=== PATIENT | female | born 1935 | race Caucasian/White ===

== ENCOUNTER 2016-11-23 14:00 | Inpatient (IN) | payer OTHER ==
[~2016-11-23] VITALS: Ht 170.2 cm; Wt 55.1 kg
[2016-11-23 14:00] VITALS: BP 131/61
[2016-11-23] MEDS ORDERED: WARFARIN SOD 2.5 MG TAB PO ONE (17:00)
--- NOTE | 2016-11-23 19:30 | HPEPDOC ---
Assembler Equipment Note DATE OF ADMISSION: Nov 23, 2016 at 14:00 Status Inpatient HISTORY OF PRESENT ILLNESS: Patient is an 81-year-old white female who presented to [facility] on 11/09/16. 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 Her initial hospitalization was complicated by 2 episodes of ventricular tachycardia related to her atrial fibrillation. Both of these events caused the patient to have a cardiopulmonary arrest and to be resuscitated. Resuscitated session lasted about 5 minutes and both events. EKG strip showed polymorphic ventricular tachycardia. Subsequent echo showed ejection fraction of 48% with global hypokinesis. On 11/19/16 patient had an AICD placed. She has been able to participate in physical occupational and speech therapy since then. She continues to have some right- sided weakness but more impressive is the fluid aphasia that tends to be more expressive than receptive or dysarthria and dysphasia have improved the patient still can certainly need supervision for meals. She has also been on Coumadin and today's INR is 3.3. PAST MEDICAL HISTORY: 1. Atrial fibrillation 2. Valvular heart disease 3. Chronic kidney disease stage III PAST SURGICAL HISTORY: 1. Status post aortic valve replacement 2. Status post mitral valve replacement 3. Status post right hip repair 4. Status post AICD placement on 11/19/16 ALLERGIES: No known drug allergy. MEDICATIONS: Acetaminophen 650 mg every 4 hours when necessary pain. Amlodipine 10 mg by mouth every day. Aspirin chewable 81 mg tablet 1 by mouth every daily. Atorvastatin 40 mg by mouth every at bedtime. Colace 100 mg by mouth daily. Hydrochlorothiazide 25 mg by mouth daily. Levothyroxine 50 g by mouth daily. Lisinopril 5 mg by mouth every daily. Metoprolol 25 mg by mouth twice a day. Dulera 200/5 Two puffs bid changed to Symbicort 160/4.5 2 puffs twice a day. Multivitamin 1 tablet by mouth daily. MiraLAX 17 g by mouth daily. Coumadin 2.5 mg by mouth every at bedtime being held tonight due to high INR. FAMILY HISTORY: Family history not obtainable from the patient with aphasia. SOCIAL HISTORY: Patient previously living independently in her own home further history limited by communication. Patient does have a daughter who is already being contact with the nursing staff. REVIEW OF SYSTEMS: Patient unable to give detailed review of system due to communication. At this time expresses that she feels good except for some facial droop and trouble with words. PHYSICAL EXAMINATION: VITAL SIGNS: Temp. 98.0F Pulse 81 BP 131/61 [id number]% on O2 2 L/M by Nasal Cannula GENERAL: Thin elderly white female saying up in her room. She is alert and oriented to self being in [place] and rehabilitation but not the specific facility. She is aware that is October but thinks it is the third of 2014. Patient does have extensive blue black ecchymoses on both upper extremities and her chin. And a fresh healing left chest incision from the AICD. She appears to be in good spirits and minimal musculoskeletal distress. She is pleasant and tries to follow directions is limited by receptive aphasia occasionally performing other than the task asked her answering the question wrongly sometimes do word substitution sometimes due to a little perseveration. Eyes: Extraocular ocular motions are intact and pupils are equal round reactive to light and accommodations. Ears, Nose & Throat: Face is essentially symmetrical at this time with no appreciable drooping and good movement of all facial muscles. Nose is straight and patent oropharynx does show some coating on the tongue but no signs of inflammation. Neck is supple and no goiter is palpable . CARDIOVASCULAR: Patient is showing a regular rate and rhythm with systolic and diastolic clicks. Pulses are 2+ over the radial arteries bilaterally and there is good perfusion of the fingers. PULMONARY: Lungs are clear in all rodríguez saw auscultation. AICD incision site is without drainage or inflammation. GASTROINTESTINAL: Bowel sounds are present in all quadrants with no palpable tenderness rebound present . MUSCULOSKELETAL: Motor exam shows 5 minus to 5 out of 5 strength in bilateral upper and lower extremities with functional range of motion and 1-2+ pitting edema in the distal leg. NEUROLOGICAL: As noted above. SKIN: As noted above . PSYCHIATRIC: As noted above. FUNCTIONAL STATUS: Premorbid: Independent on ADLs and mobility and communication living alone in her own home. On Admission: Requiring supervision for meals, min assist for grooming mod. Assistance for bathing, min assist for dressing upper body moderate assist for lower body and toileting right independent bowel and bladder total to max assist in transfers toilet locomotion min assist and expressive communication moderate assist and receptive communication social interaction and problem solving memory. ASSESSMENT AND PLAN: 1. Rehabilitation patient of left middle cerebral artery CVA. Patient admitted to the rehabilitation unit for acute intensive neuro rehabilitation including physical occupational therapy 1.5 hours or more per day 5 days a week and one half hour of speech therapy 5 days per week to facilitate transition from current status to modified independence to independent in ADLs and mobility and self-care. Patient is motivated and is medically stabilized appears able to participate and benefit from this course of rehabilitation. Initial estimated length of stay 10-14 days. 2. Atrial fibrillation. Will continue course of treatment with Coumadin and ask hospitalist to evaluate and follow. At this time INR target range will be 2.5- 3.5. Due to limited lab reports and INR of 3.[address] [facility] Coumadin order that had been 2.5 mg every 1700 hrs. Patient is currently responding to her cardiac medication and is out of atrial fibrillation at this time 3. Ventricular tachycardia with cardiac arrest secondary to atrial fibrillation. This appears to have stabilized with current regimen and AICD placement. Will continue to monitor. 4. Valvular heart disease. Aortic and mitral valve appeared to be functioning well. 5. Chronic kidney disease stage III. We'll assess current renal function with comprehensive metabolic panel as well as check urinalysis and urine culture. POST ADMISSION PHYSICIAN EVALUATION: Patient appears able to and desiring to participate in an benefit from neuro rehabilitation including physical occupational and speech therapies along with rehabilitation nursing and care coordination. In light of her multiple recent medical problems with cardiac arrhythmia I believe patient is better serve and her rehabilitation evaluation and training and is more acute environment possible modification of intensity per her ability to tolerate the therapy. PROGNOSIS: Fair to good ESTIMATED LENGTH OF STAY: 10-14 days. Chart review, history and physical examination, care plan and documentation and required greater than to 90 minutes. Vital Signs Vital Sign - Last 24 Hours 11/23/16 14:00 Temp 98.0 Pulse 81 Resp 19 B/P 131/61 Pulse Ox 100 O2 Delivery Nasal Cannula O2 Flow Rate 2.0 Allergies Coded Allergies: No Known Allergies (Unverified , 11/23/16) HARJINDER DUNN MD Nov 23, 2016 19:29
[2016-11-23 20:00] VITALS: BP 130/60
[2016-11-23] MEDS: SYMBICORT 160/4.5MCG INHALER 6GM INH SCH (20:20)
[2016-11-23] MEDS: ATORVASTATIN 20 MG TAB PO SCH (20:59)
[2016-11-23] MEDS: METOPROLOL TART 25 MG TABLET PO SCH (20:59)
[2016-11-23] MEDS: ACETAMINOPHEN TAB 650MG DOSE (2X325MG) PO PRN (22:30)
[2016-11-24] MEDS: LEVOTHYROXINE 0.05 MG TAB (50 MCG) PO SCH (05:55)
[2016-11-24 06:00] VITALS: BP 139/65
[2016-11-24 07:18] LABS: INR 2.43
[2016-11-24 07:22] LABS: BASO % 0.4 % (0.0-1.0); EOS # 0.2 K/mm3 (0.0-0.50); LARGE UNSTAINED CELL # 0.1 K/mm3 (0.0-0.4); LYMPH # 0.3 K/mm3 (1.5-4.5); LYMPH % 4.9 % (24.0-44.0); MEAN CORPUSCULAR HEMOGLOBIN 28.5 pg (27.0-33.0); MEAN CORPUSCULAR HGB CONC 32.7 g/dl (32.0-36.5); MEAN CORPUSCULAR VOLUME 87.2 fl (80.0-96.0); MONO # 0.3 K/mm3 (0.0-0.8); MONO % 3.9 % (0.0-5.0); NEUTROPHILS # 5.9 K/mm3 (1.8-7.7); NEUTROPHILS % 86.8 % (36.0-66.0); PLATELET COUNT, AUTOMATED 253 k/mm3 (150-450); RED CELL DISTRIBUTION WIDTH 13.9 % (11.5-14.5); WHITE BLOOD COUNT 6.8 K/mm3 (4.0-10.0)
[2016-11-24 07:29] LABS: ALBUMIN 3.4 GM/DL (3.2-5.2); ALBUMIN/GLOBULIN RATIO 1.06 (1.00-1.93); BILIRUBIN,TOTAL 0.6 MG/DL (0.2-1.0); CALCIUM LEVEL 8.8 MG/DL (8.8-10.2); CREATININE FOR GFR 1.21 MG/DL (0.55-1.02); GLOMERULAR FILTRATION RATE 45.5 (>32); POTASSIUM SERUM 4.4 MEQ/L (3.5-5.1); TOTAL PROTEIN 6.6 GM/DL (6.4-8.2)
[2016-11-24] MEDS: SYMBICORT 160/4.5MCG INHALER 6GM INH SCH ×2 (07:40→21:06)
[2016-11-24] MEDS: busPIRone 5 MG TAB PO SCH ×2 (08:48→20:59)
[2016-11-24] MEDS: hydroCHLOROthiazide 25 MG TAB PO SCH (08:49)
[2016-11-24] MEDS: amLODIPine 10 MG TAB PO SCH (08:49)
[2016-11-24] MEDS: MIRALAX *UNIT DOSE* 17GM PACKET PO SCH (08:49)
[2016-11-24] MEDS: MULTIVITAMINS/MINERALS THERAP 1 TAB PO SCH (08:49)
[2016-11-24] MEDS: DOCUSATE SODIUM 100 MG CAP PO SCH (08:49)
[2016-11-24] MEDS: METOPROLOL TART 25 MG TABLET PO SCH ×2 (08:49→20:59)
[2016-11-24] MEDS: LISINOPRIL 5 MG TAB PO SCH (08:49)
[2016-11-24] MEDS: ASPIRIN 81 MG CHEW TABLET PO SCH (08:49)
--- NOTE | 2016-11-24 12:51 | CR.PDOC ---
[facility] Consultation Consultation DATE OF Consultation : 11/25/15 ATTENDING: Dr. Camp PCP Dr Aldana HPI: 81yoF with a past medical history significant for VHD and Afib, CKD, pacemaker, who presented to [facility]16 with slurred speech, and found with MCA ischemic CVA. She was initially treated with heparin gtt and Coumadin (INR on admission 1.37). Initial CT Head neg but repeat showed moderate size acute MCA territory CVA. Hospital course complicted by Vfib arrest 11/09. 11/10 runs of NSVT and subsequently pulseless arrest with 5 min of CPR. She was sunsequently transferred to [facility]. Denies any fevers, chills, weakness, fatigue, ANDINO, CP, SOB, cough, palpitations, abdominal pain, N/V/D or changes in bowel or bladder habits. She was transferred to [facility] PMR 11/23/16 for acute rehabilitation, thus the hospitalist team was consulted to assist with medical management. PMHx: Atrial fib VHD CKD 3 Baseline 1.7-1.8 Left MCA Ischemic CVA 11/09/16 (Complicated by Cardiac arrest/VT). AICD placed . Carotid U/S [facility] 80-90% prox Rt ICA- Outpt mgmt recommended/not felt to be a surgical candidate. TTE [facility] EF 40-45%, diffuse hypokinesis. Stress Study 11/17 [facility] Small fixed defect. HLD hypothyroid COPD PSHX: [facility] Mechanical Aortic and Mitral Valve Replacement 1989 Pacemaker Rt hip pinning s/p fracture C section AICD 11/19/16 SOCHX: Resides in: [place], lives with Marital Status: single Kids: 2 Tobacco use: denies ETOH: denies Illicit Drugs: Denies Advanced directives: Full code ROS: As noted in HPI, otherwise 11pt ROS of systems reviewed and unremarkable. PE: GEN: 81yoF, appears stated age. Well-nourished, well developed. No acute distress. Alert and oriented x 3. Pleasant, interactive. HEENT: Normocephalic, atraumatic. Pupils are equal, round, and reactive to light. Extraocular movements are intact. No nystagmus appreciated. Sclera are nonicteric. Conjunctiva without injection. Nose midline. Nasal turbinates without bogginess. EACs both patent BL. TMs both visualized and stiles with good cone of light, no bulging or erythema. No facial asymmetry. Moist mucous membranes. Dentition fair. Pharynx pink and moist, no cobblestoning. Neck supple , trachea midline. No lymphadenopathy or thyromegaly appreciated. CHEST: Regular rate and rhythm, +S1, +S2. [place] prosthetic sounds. healed sternotomy scar and AICD implant scar left chest. LUNGS: Clear to auscultation bilaterally. No wheezes, rales, or rhonchi. Breathing appears symmetric and easy. ABD: Round, soft, non-tender, non-distended. +Bowel sounds throughout. No rebound or guarding. No costovertebral angle tenderness. EXT: Pulses 2+ bilaterally dorsalis pedis and radial. trace lower extremity edema appreciated. SKIN: [place], dry, warm. Capillary refill <2sec. No rashes. NEURO: Alert and oriented x 3. Pt with expressive aphasia. EKG: pending UC pending. A&P: 81yoF with a past medical history significant for VHD and Afib, CKD, pacemaker, who presented to [facility] 11/[facility]/16 with slurred speech, and found with MCA ischemic CVA. The patient is admitted to PMR to Dr. Camp's service. 1. S/P Ischemic CVA. Rehab services as per PMR. PT/OT/ST. bowel care ASA 81mg daily/Statin. 2. Mechanical AVR/MVR. Goal INR 2.5-3.5. Coumdain daily dose previously 2.5mg daily as per records. Will give 4 mg Coumadin today, monitor INR daily. If INR remains subtherapeutic tomorrow, consider coverage with Lovenox. (previous maintenance dose 2.5mg daily). 3. Afib. Lopressor rate control. HR 80-90s. Coumadin as above. Update baseline EKG. 4. H/O VT/AICD. Lopressor. Outpt f/u with Cardiology for management of AICD. 5. Carotid vascular disease. Outpt f/u. 6. CKD3. Baseline 1.7-1.8. 1.21 currently. AM labs. 7. hypothyroid. Continue supplement. 8. HLD. Statin 9. COPD. Symbicort. 10 Anemia. Add Fe studies, B12 and folate with labs. 11. Anxiety. Buspar. DVT prophylaxis. On Coumadin as above. I have both independently examined this patient as well as reviewed the consult. I have discussed in detail with Mary Ann the findings and plan of treatment as documented in Mary Ann'ss note. I will continue to follow the patient and offer further guidance to the patients care as necessary during this hospital stay. Ronak Bowen MD Vital Signs/I&O Vital Signs Date Time Temp Pulse Resp B/P Pulse Ox O2 Delivery O2 Flow Rate FiO2 11/24/16 09:00 Nasal Cannula 1.0 11/24/16 08:49 92 139/65 11/24/16 06:00 98.4 20 98 I&O- Last 24 Hours up to 6 AM 11/24/16 06:00 Intake Total 480 ml Balance 480 ml Laboratory Data Labs 24H Laboratory Tests 2 11/24/16 06:44: Blood Urea Nitrogen 26H, Creatinine 1.21H, Sodium Level 142, Potassium Level 4.4 , Chloride Level 104, Carbon Dioxide Level 28, Calcium Level 8.8, Aspartate Amino Transf (AST/SGOT) 41H, Alanine Aminotransferase (ALT/SGPT) 12, Alkaline Phosphatase 155H, Total Bilirubin 0.6, Total Protein 6.6, Albumin 3.4, Albumin/ Globulin Ratio 1.06, Anion Gap 10, White Blood Count 6.8, Red Blood Count 3.27L , Hemoglobin 9.3L, Hematocrit 28.5L, Mean Corpuscular Volume 87.2, Mean Corpuscular Hemoglobin 28.5, Mean Corpuscular Hemoglobin Concent 32.7, Red Cell Distribution Width 13.9, Platelet Count 253, Neutrophils (%) (Auto) 86.8H, Lymphocytes (%) (Auto) 4.9L, Monocytes (%) (Auto) 3.9, Eosinophils (%) (Auto) 3.0, Basophils (%) (Auto) 0.4, Neutrophils # (Auto) 5.9, Lymphocytes # (Auto) 0.3L, Monocytes # (Auto) 0.3, Eosinophils # (Auto) 0.2, Basophils # (Auto) 0.0, Glomerular Filtration Rate 45.5, Large Unclassified Cells # 0.1, Large Unclassified Cells % 1.0, Prothromb Time International Ratio 2.43, Prothrombin Time 26.5H 11/24/16 09:26: Urine Amorphous Sediment , Urine Appearance CLEAR, Urine Color YELLOW, Urine pH 5.0, Urine Specific [place] 1.011, Urine Protein NEGATIVE, Urine Glucose (UA) NEGATIVE, Urine Ketones NEGATIVE, Urine Urobilinogen 0.2, Urine Bilirubin NEGATIVE, Urine Leukocyte Esterase 2+H, Urine Bacteria (Auto) 1+H, Urine Blood NEGATIVE, Urine Calcium Carbonate Cryst(Auto) , Urine Calcium Oxalate Cryst ( Auto) , Urine Calcium Phosphate [place] (Auto) , Urine Cellular Casts , Urine Cystine Crystals , Urine Granular Casts (Auto) , Urine Hyaline Casts (Auto) 1, Urine Leucine Crystals , Urine Mucus (Auto) , Urine Nitrite NEGATIVE, Urine Oval Fat Bodies (Auto) , Urine RBC (Auto) 6H, Urine Renal Epithelial Cells , Urine Sperm (Auto) , Urine Squamous Epithelial Cells 1, Urine Transitional Epithelial Cells , Urine Trichomonas (Auto) , Urine Triple Phosphate Cryst (Auto ) , Urine Tyrosine Crystals , Urine Uric Acid Crystals (Auto) , Urine WBC (Auto ) 72H, Urine Waxy Casts (Auto) , Urine Yeast-Like Cells (Auto) CBC/BMP Laboratory Tests 11/24/16 06:44 Calcium Level 8.8, Aspartate Amino Transf (AST/SGOT) 41 H, Alanine Aminotransferase (ALT/SGPT) 12, Alkaline Phosphatase 155 H, Total Bilirubin 0.6 , Total Protein 6.6, Albumin 3.4, Red Blood Count 3.27 L, Mean Corpuscular Volume 87.2, Mean Corpuscular Hemoglobin 28.5, Mean Corpuscular Hemoglobin Concent 32.7, Red Cell Distribution Width 13.9, Neutrophils (%) (Auto) 86.8 H, Lymphocytes (%) (Auto) 4.9 L, Monocytes (%) (Auto) 3.9, Eosinophils (%) (Auto) 3.0, Basophils (%) (Auto) 0.4, Neutrophils # (Auto) 5.9, Lymphocytes # (Auto) 0.3 L, Monocytes # (Auto) 0.3, Eosinophils # (Auto) 0.2, Basophils # (Auto) 0.0 Microbiology Microbiology 11/24/16 Urine Culture, Received Pending Allergies Coded Allergies: No Known Allergies (Unverified , 11/23/16) Mary Ann Arteaga Nov 24, 2016 12:51 RONAK BOWEN MD Nov 25, 2016 06:58
[2016-11-24 14:00] VITALS: BP 145/64
--- NOTE | 2016-11-24 15:30 | IPNPDOC ---
Strategy Lead Progress Note DATE OF SERVICE: DATE OF ADMISSION: Nov 23, 2016 at 14:00 INPATIENT REHABILITATION ADMISSION DAY: #[2] HISTORY OF PRESENT ILLNESS: Patient is an 81-year-old white female who presented to [facility] on 11/09/16. 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 Her initial hospitalization was complicated by 2 episodes of ventricular tachycardia related to her atrial fibrillation. Both of these events caused the patient to have a cardiopulmonary arrest and to be resuscitated. Resuscitated session lasted about 5 minutes and both events. EKG strip showed polymorphic ventricular tachycardia. Subsequent echo showed ejection fraction of 48% with global hypokinesis. On 11/19/16 patient had an AICD placed. She has been able to participate in physical occupational and speech therapy since then. She continues to have some right- sided weakness but more impressive is the fluid aphasia that tends to be more expressive than receptive or dysarthria and dysphasia have improved the patient still can certainly need supervision for meals. She has also been on Coumadin and today's INR is 3.3. PAST MEDICAL HISTORY: 1. Atrial fibrillation 2. Valvular heart disease 3. Chronic kidney disease stage III PAST SURGICAL HISTORY: 1. Status post aortic valve replacement 2. Status post mitral valve replacement 3. Status post right hip repair 4. Status post AICD placement on 11/19/16 ALLERGIES: No known drug allergy. MEDICATIONS ON ADMISSION: Reviewed, see below. SUBJECTIVE: Thin elderly white female with a aphasia and right hemiparesis admitted yesterday trial of neuro rehabilitation. Patient notes that she is always cold as she is wrapped up blanket right now. room temperature has been raised. Patient denies pain or other problems. Reports initial evaluations mean with the therapists and hospitalist went well. No other complaints at this time. VITAL SIGNS: See below. PHYSICAL EXAMINATION: GENERAL: Elderly white female with fluent aphasia who is pleasant and cooperative and oriented to person and partially to time. HEENT: Facial symmetry is intact. Speech is slightly improved. Some decrease in dysarthria noted. CARDIOVASCULAR: Regular rate and rhythm with valve clicks at the beginning and end of systole and 1-2/6 holosystolic murmur. 2 out of 4 bilateral radial pulses. LUNGS: All rodríguez clear to auscultation. ABDOMEN: Bowel sounds present in all quadrants. NEUROLOGICAL: As noted above with mild right hemiparesis, most notably a Wernicke's aphasia. SKIN: Ecchymoses are maturing and improving LABORATORY DATA: Reviewed, see below. ASSESSMENT AND PLAN: 1. [Rehabilitation of left CVA with right hemiparesis and fluid aphasia: Continue with basic plan for trial of neuro rehabilitation]. 2. Anemia: hospitalist consult. We'll work with them and continue to monitor this [id number] anemia. 3. Heart arrhythmias: Currently appears to be stable we'll work with hospitalist on ongoing management.. INTERDISCIPLINARY CARE AND DISCHARGE PLANNIN. Neuro rehabilitation CVA: Proceeding with trial of physical occupational speech therapies and rehabilitative nursing with anticipated 10-14 day admission. 2. Heart arrhythmias: Currently stable. 3. Anemia currently [id number] will watch for improvement. 4. Chronic kidney disease: Currently patient creatinine as approximately 1.2 compared to her normal 1.7-1.8 so this is under better control and normal. Vital Signs Vital Sign - Last 24 Hours 11/23/16 11/23/16 11/23/16 11/23/16 20:00 20:18 20:30 20:59 Temp 97.8 Pulse 80 81 Resp 20 B/P 130/60 130/60 Pulse Ox 99 O2 Delivery Nasal Cannula Nasal Cannula Nasal Cannula O2 Flow Rate 2.0 2.0 2.0 11/24/16 11/24/16 11/24/16 11/24/16 06:00 08:49 08:49 08:49 Temp 98.4 Pulse 92 92 92 Resp 20 B/P 139/65 139/65 139/65 139/65 Pulse Ox 98 O2 Delivery Nasal Cannula O2 Flow Rate 2.0 11/24/16 11/24/16 09:00 14:00 Temp 97.3 Pulse 82 Resp 19 B/P 145/64 Pulse Ox 98 O2 Delivery Nasal Cannula Nasal Cannula O2 Flow Rate 1.0 1.0 Laboratory Data CBC/BMP Laboratory Tests 11/24/16 06:44 Calcium Level 8.8, Aspartate Amino Transf (AST/SGOT) 41 H, Alanine Aminotransferase (ALT/SGPT) 12, Alkaline Phosphatase 155 H, Total Bilirubin 0.6 , Total Protein 6.6, Albumin 3.4, Red Blood Count 3.27 L, Mean Corpuscular Volume 87.2, Mean Corpuscular Hemoglobin 28.5, Mean Corpuscular Hemoglobin Concent 32.7, Red Cell Distribution Width 13.9, Neutrophils (%) (Auto) 86.8 H, Lymphocytes (%) (Auto) 4.9 L, Monocytes (%) (Auto) 3.9, Eosinophils (%) (Auto) 3.0, Basophils (%) (Auto) 0.4, Neutrophils # (Auto) 5.9, Lymphocytes # (Auto) 0.3 L, Monocytes # (Auto) 0.3, Eosinophils # (Auto) 0.2, Basophils # (Auto) 0.0 Labs 24H Laboratory Tests 2 11/24/16 06:44: Blood Urea Nitrogen 26H, Creatinine 1.21H, Sodium Level 142, Potassium Level 4.4 , Chloride Level 104, Carbon Dioxide Level 28, Calcium Level 8.8, Aspartate Amino Transf (AST/SGOT) 41H, Alanine Aminotransferase (ALT/SGPT) 12, Alkaline Phosphatase 155H, Total Bilirubin 0.6, Total Protein 6.6, Albumin 3.4, Albumin/ Globulin Ratio 1.06, Anion Gap 10, White Blood Count 6.8, Red Blood Count 3.27L , Hemoglobin 9.3L, Hematocrit 28.5L, Mean Corpuscular Volume 87.2, Mean Corpuscular Hemoglobin 28.5, Mean Corpuscular Hemoglobin Concent 32.7, Red Cell Distribution Width 13.9, Platelet Count 253, Neutrophils (%) (Auto) 86.8H, Lymphocytes (%) (Auto) 4.9L, Monocytes (%) (Auto) 3.9, Eosinophils (%) (Auto) 3.0, Basophils (%) (Auto) 0.4, Neutrophils # (Auto) 5.9, Lymphocytes # (Auto) 0.3L, Monocytes # (Auto) 0.3, Eosinophils # (Auto) 0.2, Basophils # (Auto) 0.0, Glomerular Filtration Rate 45.5, Large Unclassified Cells # 0.1, Large Unclassified Cells % 1.0, Prothromb Time International Ratio 2.43, Prothrombin Time 26.5H 11/24/16 09:26: Urine Amorphous Sediment , Urine Appearance CLEAR, Urine Color YELLOW, Urine pH 5.0, Urine Specific [place] 1.011, Urine Protein NEGATIVE, Urine Glucose (UA) NEGATIVE, Urine Ketones NEGATIVE, Urine Urobilinogen 0.2, Urine Bilirubin NEGATIVE, Urine Leukocyte Esterase 2+H, Urine Bacteria (Auto) 1+H, Urine Blood NEGATIVE, Urine Calcium Carbonate Cryst(Auto) , Urine Calcium Oxalate Cryst ( Auto) , Urine Calcium Phosphate [place] (Auto) , Urine Cellular Casts , Urine Cystine Crystals , Urine Granular Casts (Auto) , Urine Hyaline Casts (Auto) 1, Urine Leucine Crystals , Urine Mucus (Auto) , Urine Nitrite NEGATIVE, Urine Oval Fat Bodies (Auto) , Urine RBC (Auto) 6H, Urine Renal Epithelial Cells , Urine Sperm (Auto) , Urine Squamous Epithelial Cells 1, Urine Transitional Epithelial Cells , Urine Trichomonas (Auto) , Urine Triple Phosphate Cryst (Auto ) , Urine Tyrosine Crystals , Urine Uric Acid Crystals (Auto) , Urine WBC (Auto ) 72H, Urine Waxy Casts (Auto) , Urine Yeast-Like Cells (Auto) Microbiology Microbiology 11/24/16 Urine Culture, Received Pending Allergies Allergies: Coded Allergies: No Known Allergies (Unverified , 11/23/16) Current Medications Current Medications Current Medications Acetaminophen (Tylenol Tab) 650 mg Q4HP PRN PO MILD PAIN (PS 1-4) Last administered on 11/23/16 22:30; Start 11/23/16 at 16:30; Stop 12/23/16 at 16:29 Amlodipine Besylate (Norvasc) 10 mg DAILY PO Last administered on 11/24/16 08: 49; Start 11/24/16 at 09:00; Stop 12/24/16 at 08:59 Aspirin (Aspirin Chewable) 81 mg DAILY PO Last administered on 11/24/16 08:49 ; Start 11/24/16 at 09:00; Stop 12/24/16 at 08:59 Atorvastatin Calcium (Lipitor) 40 mg QHS PO Last administered on 11/23/16 20: 59; Start 11/23/16 at 21:00; Stop 12/23/16 at 20:59 Budesonide/ Formoterol Fumarate (Symbicort 160/ 4.5mcg) 2 puff BID INH Last administered on 11/24/16 07:40; Start 11/23/16 at 21:00; Stop 12/23/16 at 20:59 Buspirone HCl (Buspar) 5 mg BID PO Last administered on 11/24/16 08:48; Start 11/24/16 at 09:00; Stop 11/27/16 at 08:59 Buspirone HCl (Buspar) 7.5 mg BID PO ; Start 11/27/16 at 09:00; Stop 11/30/16 at 08:59 Buspirone HCl (Buspar) 10 mg BID PO ; Start 11/30/16 at 09:00; Stop 12/27/16 at 08:59 Docusate Sodium (Colace) 100 mg DAILY PO ; Start 11/24/16 at 09:00; Stop at 08:59 Hydrochlorothiazide (Hydrodiuril) 25 mg DAILY PO Last administered on 08:49; Start 11/24/16 at 09:00; Stop 12/24/16 at 08:59 Levothyroxine Sodium (Synthroid) 0.05 mg DAILY@06 PO Last administered on 05:55; Start 11/24/16 at 06:00; Stop 12/24/16 at 05:59 Lisinopril (Prinivil) 5 mg DAILY PO Last administered on 11/24/16 08:49; Start 11/24/16 at 09:00; Stop 12/24/16 at 08:59 Metoprolol Tartrate (Lopressor) 25 mg BID PO Last administered on 11/24/16 08: 49; Start 11/23/16 at 21:00; Stop 12/23/16 at 20:59 Multivitamins (Theragram-M) 1 tab DAILY PO Last administered on 11/24/16 08:49 ; Start 11/24/16 at 09:00; Stop 12/24/16 at 08:59 Polyethylene Glycol (Miralax) 1 pkt DAILY PO ; Start 11/24/16 at 09:00; Stop at 08:59 HARJINDRE DUNN MD Nov 24, 2016 15:28
[2016-11-24] MEDS ORDERED: WARFARIN SOD 4 MG TAB PO ONE (17:00)
[2016-11-24 20:00] VITALS: BP 141/65
[2016-11-24] MEDS: ATORVASTATIN 20 MG TAB PO SCH (20:59)
[2016-11-25] MEDS: ACETAMINOPHEN TAB 650MG DOSE (2X325MG) PO PRN (01:05)
[2016-11-25] MEDS ORDERED: ONDANSETRON 4 MG TAB (S0181) PO PRN (05:00)
[2016-11-25 05:26] LABS: MEAN CORPUSCULAR HEMOGLOBIN 29.2 pg (27.0-33.0); MEAN CORPUSCULAR HGB CONC 33.5 g/dl (32.0-36.5); MEAN CORPUSCULAR VOLUME 87.2 fl (80.0-96.0); RED CELL DISTRIBUTION WIDTH 14.1 % (11.5-14.5); WHITE BLOOD COUNT 8.7 K/mm3 (4.0-10.0)
[2016-11-25 05:30] LABS: INR 2.29
[2016-11-25] MEDS: LEVOTHYROXINE 0.05 MG TAB (50 MCG) PO SCH (05:33)
[2016-11-25 05:45] LABS: FERRITIN 351 NG/ML (8-252); PERCENT SATURATION 9.1 % (13.2-37.4); TOTAL IRON BINDING CAPACITY 375 UG/DL (250-450)
[2016-11-25 06:00] VITALS: BP 129/58
--- NOTE | 2016-11-25 07:18 | ECGEPIP ---
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
[2016-11-25] MEDS: SYMBICORT 160/4.5MCG INHALER 6GM INH SCH ×2 (07:44→20:50)
[2016-11-25] MEDS: ASPIRIN 81 MG CHEW TABLET PO SCH (08:39)
[2016-11-25] MEDS: DOCUSATE SODIUM 100 MG CAP PO SCH ×3 (08:39→09:00)
[2016-11-25] MEDS: LISINOPRIL 5 MG TAB PO SCH (08:39)
[2016-11-25] MEDS: hydroCHLOROthiazide 25 MG TAB PO SCH (08:40)
[2016-11-25] MEDS: amLODIPine 10 MG TAB PO SCH (08:40)
[2016-11-25] MEDS: busPIRone 5 MG TAB PO SCH ×2 (08:40→21:17)
[2016-11-25] MEDS: MULTIVITAMINS/MINERALS THERAP 1 TAB PO SCH (08:40)
[2016-11-25] MEDS: METOPROLOL TART 25 MG TABLET PO SCH ×2 (08:40→21:17)
[2016-11-25] MEDS: MIRALAX *UNIT DOSE* 17GM PACKET PO SCH (08:40)
[2016-11-25 10:20] LABS: FOLATE > 24.0 NG/ML (>5.4)
--- NOTE | 2016-11-25 12:44 | IPNPDOC ---
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 Patient reports doing well today without pain, fever, chills, cough, or malaise. She feels less anxious today. She is more comfortable with the unit and her therapy. ALLERGIES: See Below MEDICATIONS: Reviewed, see below. VITAL SIGNS: Please see below. PHYSICAL EXAMINATION: GENERAL: Thin elderly white female with clearing ecchymoses of the face and extremities. HEENT: Normocephalic atraumatic with just a little ecchymosis left on the chin. Facial droop is essentially clear. CARDIOVASCULAR: As showing a regular rate and rhythm today with normal S1 and S2 with valve clicks at the start and end of systole and 2 out 4 bilateral radial pulses. Of note patient has had some atrial fibrillation on recent EKG the current one showed normal sinus rhythm heart rate of 86 with delayed R-wave and nonspecific ST-T wave changes. LUNGS: All rodríguez are clear to auscultation. ABDOMEN: Normal bowel sounds no tenderness in all quadrants. NEUROLOGICAL: Patient is alert and oriented to person place and more of time and situation. He is pleasant and cooperative and doing better with following one and two-step commands. Patient with less neoglisms and word substitutions that in the last 2 days. Improving right motor control today as well. SKIN: Ecchymoses showing good resolution. AICD incision site is continuing to heal without problems. LABORATORY DATA: Reviewed. Please see below. Urine culture is negative and anemia is stable. MICROBIOLOGY: Please see below. DVT prophylaxis ordered?: Patient continues on Coumadin 2.5 mg with INR 2.2 today. ASSESSMENT AND PLAN: 1. Rehabilitation of left CVA: Patient becoming more comfortable with physical occupational and speech therapies and routine of the urias. This is resulting in decreasing of her anxiety as well as helping with improvement in motor and language functions. Will continue therapies and progress as able. 2. Atrial fibrillation with ventricular tachycardia and cardiac arrest: Patient still with some urgency of atrial fibrillation but steady ventricular rate and good pressure and circulation. I will continue Coumadin 2.5 mg for the next 2 days and also check pro-time INRs for the next few mornings.. 3. Anxiety: Patient has been started on low-dose does seem to be doing better though this is more likely becoming familiar with the rehabilitation unit and daily routine versus the medication showing much affects this early on as as not normal course of response to BuSpar. TIME SPENT: 30 minutes. Allergies Coded Allergies: No Known Allergies (Unverified , 11/23/16) Vital Signs Vital Signs Date Time Temp Pulse Resp B/P Pulse Ox O2 Delivery O2 Flow Rate FiO2 11/25/16 09:00 Nasal Cannula 2.0 11/25/16 08:40 85 129/58 11/25/16 06:00 99.1 18 93 Laboratory Data CBC/BMP Laboratory Tests 11/25/16 05:05 Red Blood Count 3.33 L, Mean Corpuscular Volume 87.2, Mean Corpuscular Hemoglobin 29.2, Mean Corpuscular Hemoglobin Concent 33.5, Red Cell Distribution Width 14.1 Labs 24H Laboratory Tests 2 11/25/16 05:05: Creatine Kinase MB 3.4, Creatine Kinase MB Relative Index 2.53, Ferritin 351H, Folate > 24.0, Iron Level 34L, Prothromb Time International Ratio 2.29, Prothrombin Time 25.3H, Total Creatine Kinase 134, Total Iron Binding Capacity 375, Transferrin % Saturation 9.1L, Troponin I 0.06 11/25/16 10:41: Creatine Kinase MB 3.6, Creatine Kinase MB Relative Index 3.10, Total Creatine Kinase 116, Troponin I 0.05 Microbiology Microbiology 11/24/16 Urine Culture - Final, Complete Current Medications Current Medications Current Medications Acetaminophen (Tylenol Tab) 650 mg Q4HP PRN PO MILD PAIN (PS 1-4) Last administered on 11/25/16 01:05; Start 11/23/16 at 16:30; Stop 12/23/16 at 16:29 Amlodipine Besylate (Norvasc) 10 mg DAILY PO Last administered on 11/25/16 08: 40; Start 11/24/16 at 09:00; Stop 12/24/16 at 08:59 Aspirin (Aspirin Chewable) 81 mg DAILY PO Last administered on 11/25/16 08:39 ; Start 11/24/16 at 09:00; Stop 12/24/16 at 08:59 Atorvastatin Calcium (Lipitor) 40 mg QHS PO Last administered on 11/24/16 20: 59; Start 11/23/16 at 21:00; Stop 12/23/16 at 20:59 Budesonide/ Formoterol Fumarate (Symbicort 160/ 4.5mcg) 2 puff BID INH Last administered on 11/25/16 07:44; Start 11/23/16 at 21:00; Stop 12/23/16 at 20:59 Buspirone HCl (Buspar) 5 mg BID PO Last administered on 11/25/16 08:40; Start 11/24/16 at 09:00; Stop 11/27/16 at 08:59 Buspirone HCl (Buspar) 7.5 mg BID PO ; Start 11/27/16 at 09:00; Stop 11/30/16 at 08:59 Buspirone HCl (Buspar) 10 mg BID PO ; Start 11/30/16 at 09:00; Stop 12/27/16 at 08:59 Docusate Sodium (Colace) 100 mg DAILY PO ; Start 11/24/16 at 09:00; Stop at 08:59 Hydrochlorothiazide (Hydrodiuril) 25 mg DAILY PO Last administered on 08:40; Start 11/24/16 at 09:00; Stop 12/24/16 at 08:59 Levothyroxine Sodium (Synthroid) 0.05 mg DAILY@06 PO Last administered on 05:33; Start 11/24/16 at 06:00; Stop 12/24/16 at 05:59 Lisinopril (Prinivil) 5 mg DAILY PO Last administered on 11/25/16 08:39; Start 11/24/16 at 09:00; Stop 12/24/16 at 08:59 Metoprolol Tartrate (Lopressor) 25 mg BID PO Last administered on 11/25/16 08: 40; Start 11/23/16 at 21:00; Stop 12/23/16 at 20:59 Multivitamins (Theragram-M) 1 tab DAILY PO Last administered on 11/25/16 08:40 ; Start 11/24/16 at 09:00; Stop 12/24/16 at 08:59 Ondansetron HCl (Zofran) 4 mg Q4HP PRN PO NAUSEA OR VOMITING Last administered on 3/29/17at 05:00; Start 11/25/16 at 05:00; Stop 12/25/16 at 04:59 Polyethylene Glycol (Miralax) 1 pkt DAILY PO ; Start 11/24/16 at 09:00; Stop at 08:59 HARJINDER DUNN MD Nov 25, 2016 12:43
[2016-11-25 13:15] LABS: ALBUMIN 4.1 GM/DL (3.2-5.2); ALBUMIN/GLOBULIN RATIO 1.24 (1.00-1.93); ALKALINE PHOSPHATASE 178 U/L (45-117); ALT/SGPT 21 U/L (12-78); ANION GAP 12 MEQ/L (8-16); AST/SGOT 44 U/L (15-37); BILIRUBIN,TOTAL 0.6 MG/DL (0.2-1.0); BLOOD UREA NITROGEN 26 MG/DL (7-18); CALCIUM LEVEL 9.8 MG/DL (8.8-10.2); CARBON DIOXIDE LEVEL 24 MEQ/L (21-32); CHLORIDE LEVEL 105 MEQ/L (98-107); CREATININE FOR GFR 1.35 MG/DL (0.55-1.02); GLOMERULAR FILTRATION RATE 40.1 (>32); GLUCOSE, FASTING 98 MG/DL (83-110); POTASSIUM SERUM 4.9 MEQ/L (3.5-5.1); SODIUM LEVEL 141 MEQ/L (136-145); TOTAL PROTEIN 7.4 GM/DL (6.4-8.2)
[2016-11-25 13:41] LABS: INR 2.61
--- NOTE | 2016-11-25 13:58 | IPNPDOC ---
Subjective Date Seen The patient was seen on 11/25/16. Subjective Chief Complaint/HPI The patient is a 81-year-old female admitted with a reason for visit of Left Mca Stroke. Events since last encounter Pt with no complaints at this time. Denies any CP, SOB, palpitations, N/V. Constitutional: Denies: Chills, Fever, Night Sweats ENT: Denies: Dysphagia, Ear Pain, Head Aches Pulmonary: Denies: Cough, Dyspnea Cardiovascular: Denies: Chest Pain, Lt Headedness, Orthopnea, Palpitations, Paroxysmal Noc. Dyspnea Genitourinary: Denies: Dysuria, Frequency, Incontinence, Retention Objective Physical Examination General Exam: Positive: Alert Eye Exam: Positive: PERRLA ENT Exam: Positive: Atraumatic Chest Exam: Positive: Clear to auscultation, Normal air movement Heart Exam: Positive: Normal S1, Normal S2, Rate Normal, Regular Rhythm, Negative: Murmurs, Rubs Skin Exam: Positive: Nl turgor and temperature, Negative: Breakdown, Rash Assessment /Plan Problems (1) Left middle cerebral artery stroke Status: Acute Problem Text: * Rehab as per ARU. (2) Atrial fibrillation Status: Chronic Problem Text: * Coumadin * Rate controlled. * Reviewed EKGs with Dr Haynes. One from yesterday afternoon and from during night. Both SR. * CIP/Trop neg. * Pt denies CP/SOB/Palpitations. (3) Ventricular tachycardia Status: Chronic Problem Text: * AICD * Outpt F/U planned. (4) Chronic kidney disease (CKD), stage III (moderate) Status: Chronic Problem Text: * Monitor labs (5) Anxiety Status: Chronic (6) Mechanical heart valve present Status: Chronic Problem Text: * Goal INR 2.5-3.5. * Subtherapeutic INR this AM. * Usual dose 2.5mg daily. Additional coumadin given yesterday, 4 mg. * Will give 4.5mg today. * Continue with daily INR. Plan/VTE VTE Prophylaxis Ordered?: Yes Disposition as per ARU. VS, I&O, 24H, Fishbone Vital Signs/I&O Vital Signs Date Time Temp Pulse Resp B/P Pulse Ox O2 Delivery O2 Flow Rate FiO2 11/25/16 09:00 Nasal Cannula 2.0 11/25/16 08:40 85 129/58 11/25/16 06:00 99.1 18 93 I&O- Last 24 Hours up to 6 AM 11/25/16 05:59 Intake Total 960 ml Balance 960 ml Laboratory Data 24H LABS Laboratory Tests 2 11/25/16 05:05: Blood Urea Nitrogen 26H, Creatinine 1.35H, Sodium Level 141, Potassium Level 4.9 , Chloride Level 105, Carbon Dioxide Level 24, Calcium Level 9.8, Aspartate Amino Transf (AST/SGOT) 44H, Alanine Aminotransferase (ALT/SGPT) 21, Alkaline Phosphatase 178H, Total Bilirubin 0.6, Total Protein 7.4, Albumin 4.1#, Albumin/ Globulin Ratio 1.24, Anion Gap 12, Creatine Kinase MB 3.4, Creatine Kinase MB Relative Index 2.53, Ferritin 351H, Folate > 24.0, Glomerular Filtration Rate 40.1, Iron Level 34L, Prothromb Time International Ratio 2.29, Prothrombin Time 25.3H, Total Creatine Kinase 134, Total Iron Binding Capacity 375, Transferrin % Saturation 9.1L, Troponin I 0.06 11/25/16 10:41: Creatine Kinase MB 3.6, Creatine Kinase MB Relative Index 3.10, Total Creatine Kinase 116, Troponin I 0.05 11/25/16 12:33: Prothromb Time International Ratio 2.61, Prothrombin Time 28.0H CBC/BMP Laboratory Tests 11/25/16 05:05 Calcium Level 9.8, Aspartate Amino Transf (AST/SGOT) 44 H, Alanine Aminotransferase (ALT/SGPT) 21, Alkaline Phosphatase 178 H, Total Bilirubin 0.6 , Total Protein 7.4, Albumin 4.1 #, Red Blood Count 3.33 L, Mean Corpuscular Volume 87.2, Mean Corpuscular Hemoglobin 29.2, Mean Corpuscular Hemoglobin Concent 33.5, Red Cell Distribution Width 14.1 Microbiology Microbiology 11/24/16 Urine Culture - Final, Complete Mary Ann Arteaga Nov 25, 2016 13:58
[2016-11-25 14:00] VITALS: BP 141/64
[2016-11-25] MEDS: WARFARIN SOD 2.5 MG TAB PO SCH (16:15)
[2016-11-25] MEDS ORDERED: WARFARIN SOD 2 MG TAB PO ONE (17:00)
[2016-11-25 20:00] VITALS: BP 132/63
[2016-11-25] MEDS: ATORVASTATIN 20 MG TAB PO SCH (21:17)
--- NOTE | 2016-11-26 05:16 | ECGEPIP ---
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
[2016-11-26 06:00] VITALS: BP 154/67
[2016-11-26] MEDS: ACETAMINOPHEN TAB 650MG DOSE (2X325MG) PO PRN ×2 (06:14→21:05)
[2016-11-26] MEDS: LEVOTHYROXINE 0.05 MG TAB (50 MCG) PO SCH (06:14)
[2016-11-26 07:50] LABS: INR 3.13
[2016-11-26 07:53] LABS: ALBUMIN 3.3 GM/DL (3.2-5.2); BILIRUBIN,TOTAL 0.5 MG/DL (0.2-1.0); CREATININE FOR GFR 1.47 MG/DL (0.55-1.02); GLOMERULAR FILTRATION RATE 36.3 (>32); POTASSIUM SERUM 4.8 MEQ/L (3.5-5.1); TOTAL PROTEIN 6.6 GM/DL (6.4-8.2)
[2016-11-26 08:34] LABS: MEAN CORPUSCULAR HEMOGLOBIN 28.8 pg (27.0-33.0); MEAN CORPUSCULAR HGB CONC 32.2 g/dl (32.0-36.5); MEAN CORPUSCULAR VOLUME 89.6 fl (80.0-96.0); RED CELL DISTRIBUTION WIDTH 14.3 % (11.5-14.5); WHITE BLOOD COUNT 7.3 K/mm3 (4.0-10.0)
[2016-11-26] MEDS: SYMBICORT 160/4.5MCG INHALER 6GM INH SCH ×2 (08:40→19:54)
[2016-11-26] MEDS: MIRALAX *UNIT DOSE* 17GM PACKET PO SCH (09:55)
[2016-11-26] MEDS: busPIRone 5 MG TAB PO SCH ×2 (09:55→21:06)
[2016-11-26] MEDS: MULTIVITAMINS/MINERALS THERAP 1 TAB PO SCH (09:55)
[2016-11-26] MEDS: DOCUSATE SODIUM 100 MG CAP PO SCH (09:55)
[2016-11-26] MEDS: ASPIRIN 81 MG CHEW TABLET PO SCH (09:55)
[2016-11-26] MEDS: hydroCHLOROthiazide 25 MG TAB PO SCH (09:55)
[2016-11-26] MEDS: amLODIPine 10 MG TAB PO SCH (09:56)
[2016-11-26] MEDS: METOPROLOL TART 25 MG TABLET PO SCH ×2 (09:56→21:05)
[2016-11-26] MEDS: LISINOPRIL 5 MG TAB PO SCH (09:56)
--- NOTE | 2016-11-26 13:48 | IPNPDOC ---
Subjective Date Seen The patient was seen on 11/26/16. Subjective Chief Complaint/HPI The patient is a 81-year-old female admitted with a reason for visit of Left Mca Stroke. Events since last encounter Pt with no new complaints. Patient denies chest pain or shortness of breath. Denies any bleeding, hematuria, blood in stool, dark stools. ENT: Denies: Dysphagia, Ear Pain, Head Aches Pulmonary: Denies: Cough, Dyspnea Cardiovascular: Denies: Chest Pain, Lt Headedness, Orthopnea, Palpitations, Paroxysmal Noc. Dyspnea Gastrointestinal: Denies: Abdominal Pain, Constipation, Diarrhea, Nausea, Vomiting Genitourinary: Denies: Dysuria, Frequency, Incontinence, Retention Objective Physical Examination General Exam: Positive: Alert Eye Exam: Positive: PERRLA ENT Exam: Positive: Atraumatic Chest Exam: Positive: Clear to auscultation, Normal air movement Heart Exam: Positive: Normal S1, Normal S2, Rate Normal, Regular Rhythm, Negative: Murmurs, Rubs Skin Exam: Positive: Nl turgor and temperature, Negative: Breakdown, Rash Assessment /Plan Problems (1) Left middle cerebral artery stroke Status: Acute Problem Text: * Rehab as per ARU. (2) Atrial fibrillation Status: Chronic Problem Text: * Coumadin * Rate controlled. * Reviewed EKGs with Dr Haynes. One from 11/24 afternoon and 11/25 4AM PM. Both SR. * CIP/Trop neg. * Pt denies CP/SOB/Palpitations. (3) Ventricular tachycardia Status: Chronic Problem Text: * AICD * Outpt F/U planned. (4) Chronic kidney disease (CKD), stage III (moderate) Status: Chronic Problem Text: * Scr trend upward * Hold ACEI * Cont HCTZ. * Monitor labs (5) Anxiety Status: Chronic Problem Text: * Buspar as per attending (6) Mechanical heart valve present Status: Chronic Problem Text: * Goal INR 2.5-3.5. * INR 3.13. * Usual dose 2.5mg daily- continue with this daily dose. * Continue with daily INR. (7) Anemia Status: Chronic Problem Text: * 8.8-9.7 * B12/folate WNL * Fe34/Ferritin 351 * Stool OB pending. (8) HTN (hypertension) Status: Chronic Problem Text: * Hold ACEI related to renal function. * Cont Norvasc/HCTZ. * Monitor labs. * Monitor BP. Plan/VTE VTE Prophylaxis Ordered?: Yes VS, I&O, 24H, Fishbone Vital Signs/I&O Vital Signs Date Time Temp Pulse Resp B/P Pulse Ox O2 Delivery O2 Flow Rate FiO2 11/26/16 09:56 91 150/65 11/26/16 06:00 98.1 20 98 Nasal Cannula 2.0 I&O- Last 24 Hours up to 6 AM 11/26/16 05:59 Intake Total 1020 ml Balance 1020 ml Laboratory Data 24H LABS Laboratory Tests 2 11/26/16 07:14: Blood Urea Nitrogen 23H, Creatinine 1.47H, Sodium Level 142, Potassium Level 4.8 , Chloride Level 107, Carbon Dioxide Level 29, Calcium Level 9.0, Aspartate Amino Transf (AST/SGOT) 34, Alanine Aminotransferase (ALT/SGPT) 15, Alkaline Phosphatase 147H, Total Bilirubin 0.5, Total Protein 6.6, Albumin 3.3, Albumin/ Globulin Ratio 1.00, Anion Gap 6L, Glomerular Filtration Rate 36.3, Prothromb Time International Ratio 3.13, Prothrombin Time 32.2H CBC/BMP Laboratory Tests 11/26/16 07:14 Calcium Level 9.0, Aspartate Amino Transf (AST/SGOT) 34, Alanine Aminotransferase (ALT/SGPT) 15, Alkaline Phosphatase 147 H, Total Bilirubin 0.5 , Total Protein 6.6, Albumin 3.3, Red Blood Count 3.04 L, Mean Corpuscular Volume 89.6, Mean Corpuscular Hemoglobin 28.8, Mean Corpuscular Hemoglobin Concent 32.2, Red Cell Distribution Width 14.3 Microbiology Microbiology 11/24/16 Urine Culture - Final, Complete Mary Ann Arteaga Nov 26, 2016 13:48
[2016-11-26 14:00] VITALS: BP 126/58
[2016-11-26] MEDS: WARFARIN SOD 2.5 MG TAB PO SCH (17:36)
--- NOTE | 2016-11-26 18:36 | IPNPDOC ---
[employer] Progress Note DATE OF SERVICE: 11/26/2016 DATE OF ADMISSION: Nov 23, 2016 at 14:00 INPATIENT REHABILITATION ADMISSION DAY: #3 SUBJECTIVE: Patient is a 81-year-old white female with CVA and hemiparesis along with anxiety and extensive cardiac disease. Patient reports feeling good today and being happy with her ambulation. She denies a pain fever chills or other problems. ALLERGIES: See Below MEDICATIONS ON ADMISSION: Reviewed, see below. OBJECTIVE: VITAL SIGNS: Please see below. PHYSICAL EXAMINATION: GENERAL: Tall thin elderly white female who is alert and oriented to person and place but sometimes does not track things around her well and also gets distracted. Some signs of impulsivity are seen along with the anxiety. However patient showed early good ambulation with oxygen walker. Accept with activity was in no acute distress HEENT: No facial asymmetry, good symmetrical facial tone. Ecchymosis on chin is almost completely clear. CARDIOVASCULAR: Fairly regular rate with occasional PVC and good pulses with valvular click still audible. LUNGS: All rodríguez clear to auscultation. ABDOMEN: Bowel sounds present in all quadrants. NEUROLOGICAL: As noted above. SKIN: Very little remaining ecchymoses this time. LABORATORY DATA: Reviewed. Please see below. MICROBIOLOGY: Please see below. IMAGING: No new studies Echocardiogram: N/a. DVT prophylaxis ordered?: Yes ASSESSMENT AND PLAN: 1. Rehabilitation of CVA with hemiparesis: Patient made some notable motor gains today though is limited by lungs and requiring some oxygen to ambulate otherwise she will desaturate into the mid 80s. We are proceeding with PT OT and she is showing some good gains and skills as discussed in team rounds. I will also have patient evaluated by speech as is unclear whether related to the stroke or her anxiety and depression it is clear that there are some cognitive and judgment issues at times. We'll start patient on a trial of room privileges. 2. ASCVD: Patient is continued on Coumadin with target range of INR in the 2.5- 3.5 range and appears to be starting to stabilize on a daily dose of 2.5 mg per day systolic blood pressure is slightly high at 154 today and will continue to watch that with the hospitalists. 3. Anxiety/depression: Patient has improved on her anxiety in general but when family and friends show up it becomes more demonstrative early this evening talking about being discharged however current plan is for discharge early next week. 4. Anemia: Hospitalist pursuing further evaluation with drop in H&H from yesterday. TIME SPENT: Time spent on chart review, evaluation and team rounds is greater than 25 minutes. Allergies Coded Allergies: No Known Allergies (Unverified , 11/23/16) Vital Signs Vital Signs Date Time Temp Pulse Resp B/P Pulse Ox O2 Delivery O2 Flow Rate FiO2 11/26/16 14:00 98.0 74 20 126/58 98 Nasal Cannula 2.0 Laboratory Data CBC/BMP Laboratory Tests 11/26/16 07:14 Calcium Level 9.0, Aspartate Amino Transf (AST/SGOT) 34, Alanine Aminotransferase (ALT/SGPT) 15, Alkaline Phosphatase 147 H, Total Bilirubin 0.5 , Total Protein 6.6, Albumin 3.3, Red Blood Count 3.04 L, Mean Corpuscular Volume 89.6, Mean Corpuscular Hemoglobin 28.8, Mean Corpuscular Hemoglobin Concent 32.2, Red Cell Distribution Width 14.3 Labs 24H Laboratory Tests 2 11/26/16 07:14: Blood Urea Nitrogen 23H, Creatinine 1.47H, Sodium Level 142, Potassium Level 4.8 , Chloride Level 107, Carbon Dioxide Level 29, Calcium Level 9.0, Aspartate Amino Transf (AST/SGOT) 34, Alanine Aminotransferase (ALT/SGPT) 15, Alkaline Phosphatase 147H, Total Bilirubin 0.5, Total Protein 6.6, Albumin 3.3, Albumin/ Globulin Ratio 1.00, Anion Gap 6L, Glomerular Filtration Rate 36.3, Prothromb Time International Ratio 3.13, Prothrombin Time 32.2H Microbiology Microbiology 11/24/16 Urine Culture - Final, Complete Current Medications Current Medications Current Medications Acetaminophen (Tylenol Tab) 650 mg Q4HP PRN PO MILD PAIN (PS 1-4) Last administered on 11/26/16 06:14; Start 11/23/16 at 16:30; Stop 12/23/16 at 16:29 Amlodipine Besylate (Norvasc) 10 mg DAILY PO Last administered on 11/26/16 09: 56; Start 11/24/16 at 09:00; Stop 12/24/16 at 08:59 Aspirin (Aspirin Chewable) 81 mg DAILY PO Last administered on 11/26/16 09:55 ; Start 11/24/16 at 09:00; Stop 12/24/16 at 08:59 Atorvastatin Calcium (Lipitor) 40 mg QHS PO Last administered on 11/25/16 21: 17; Start 11/23/16 at 21:00; Stop 12/23/16 at 20:59 Budesonide/ Formoterol Fumarate (Symbicort 160/ 4.5mcg) 2 puff BID INH Last administered on 11/26/16 08:40; Start 11/23/16 at 21:00; Stop 12/23/16 at 20:59 Buspirone HCl (Buspar) 5 mg BID PO Last administered on 11/26/16 09:55; Start 11/24/16 at 09:00; Stop 11/27/16 at 08:59 Buspirone HCl (Buspar) 7.5 mg BID PO ; Start 11/27/16 at 09:00; Stop 11/30/16 at 08:59 Buspirone HCl (Buspar) 10 mg BID PO ; Start 11/30/16 at 09:00; Stop 12/27/16 at 08:59 Docusate Sodium (Colace) 100 mg DAILY PO Last administered on 11/26/16 09:55; Start 11/24/16 at 09:00; Stop 12/24/16 at 08:59 Hydrochlorothiazide (Hydrodiuril) 25 mg DAILY PO Last administered on 09:55; Start 11/24/16 at 09:00; Stop 12/24/16 at 08:59 Levothyroxine Sodium (Synthroid) 0.05 mg DAILY@06 PO Last administered on 06:14; Start 11/24/16 at 06:00; Stop 12/24/16 at 05:59 Lisinopril (Prinivil) 5 mg DAILY PO Last administered on 11/26/16 09:56; Start 11/24/16 at 09:00; Stop 11/26/16 at 13:46; Status DC Metoprolol Tartrate (Lopressor) 25 mg BID PO Last administered on 11/26/16 09: 56; Start 11/23/16 at 21:00; Stop 12/23/16 at 20:59 Multivitamins (Theragram-M) 1 tab DAILY PO Last administered on 11/26/16 09:55 ; Start 11/24/16 at 09:00; Stop 12/24/16 at 08:59 Ondansetron HCl (Zofran) 4 mg Q4HP PRN PO NAUSEA OR VOMITING Last administered on 11/25/16 05:00; Start 11/25/16 at 05:00; Stop 12/25/16 at 04:59 Polyethylene Glycol (Miralax) 1 pkt DAILY PO Last administered on 11/26/16 09: 55; Start 11/24/16 at 09:00; Stop 12/24/16 at 08:59 Warfarin Sodium (Coumadin) 2.5 mg DAILY@17 PO Last administered on 11/26/16 17 :36; Start 11/25/16 at 17:00; Stop 11/27/16 at 09:00 HARJINDER DUNN MD Nov 26, 2016 18:36
[2016-11-26 20:00] VITALS: BP 130/60
[2016-11-26] MEDS: ATORVASTATIN 20 MG TAB PO SCH (21:06)
[2016-11-27 06:00] VITALS: BP 140/65
[2016-11-27] MEDS: LEVOTHYROXINE 0.05 MG TAB (50 MCG) PO SCH (06:33)
[2016-11-27 07:35] LABS: MEAN CORPUSCULAR HEMOGLOBIN 28.7 pg (27.0-33.0); MEAN CORPUSCULAR HGB CONC 32.3 g/dl (32.0-36.5); MEAN CORPUSCULAR VOLUME 88.8 fl (80.0-96.0); RED CELL DISTRIBUTION WIDTH 14.5 % (11.5-14.5); WHITE BLOOD COUNT 7.9 K/mm3 (4.0-10.0)
[2016-11-27 07:38] LABS: INR 4.01
[2016-11-27] MEDS: SYMBICORT 160/4.5MCG INHALER 6GM INH SCH ×2 (07:49→19:11)
[2016-11-27 08:06] VITALS: BP 143/61
[2016-11-27 08:07] LABS: CALCIUM LEVEL 8.6 MG/DL (8.8-10.2); CREATININE FOR GFR 1.45 MG/DL (0.55-1.02); GLOMERULAR FILTRATION RATE 36.9 (>32); POTASSIUM SERUM 4.4 MEQ/L (3.5-5.1)
[2016-11-27 08:36] LABS: ALBUMIN 3.5 GM/DL (3.2-5.2); ALBUMIN/GLOBULIN RATIO 1.03 (1.00-1.93); BILIRUBIN,TOTAL 0.6 MG/DL (0.2-1.0); TOTAL PROTEIN 6.9 GM/DL (6.4-8.2)
[2016-11-27] MEDS: DOCUSATE SODIUM 100 MG CAP PO SCH ×2 (09:00→09:21)
[2016-11-27] MEDS: MIRALAX *UNIT DOSE* 17GM PACKET PO SCH (09:00)
[2016-11-27] MEDS: busPIRone 5 MG TAB PO SCH ×2 (09:21→20:14)
[2016-11-27] MEDS: amLODIPine 10 MG TAB PO SCH (09:21)
[2016-11-27] MEDS: hydroCHLOROthiazide 25 MG TAB PO SCH (09:22)
[2016-11-27] MEDS: MULTIVITAMINS/MINERALS THERAP 1 TAB PO SCH (09:22)
[2016-11-27] MEDS: ASPIRIN 81 MG CHEW TABLET PO SCH (09:22)
[2016-11-27] MEDS: METOPROLOL TART 25 MG TABLET PO SCH ×2 (09:22→20:13)
--- NOTE | 2016-11-27 12:18 | IPNPDOC ---
Subjective Date Seen The patient was seen on 11/27/16. Subjective Chief Complaint/HPI The patient is a 81-year-old female admitted with a reason for visit of Left Mca Stroke. Events since last encounter Pt had one episode of vomiting this AM. She states she felt anxious when she woke up and that sometimes this happens to her and she needs to get OOB. She is OOB to the chair and is working with the ST and states she feels "fine". She has no verbalized complaints at this time. She is denying CP/SOB/Abdominal pain, or persistent nausea. Constitutional: Reports: Night Sweats, Denies: Chills, Fever ENT: Denies: Dysphagia, Ear Pain, Head Aches Pulmonary: Denies: Cough, Dyspnea Cardiovascular: Denies: Chest Pain, Lt Headedness, Orthopnea, Palpitations, Paroxysmal Noc. Dyspnea Gastrointestinal: Denies: Abdominal Pain, Constipation, Diarrhea, Nausea, Vomiting Genitourinary: Denies: Dysuria, Frequency, Incontinence, Retention Objective Physical Examination General Exam: Positive: Alert Eye Exam: Positive: PERRLA ENT Exam: Positive: Atraumatic Chest Exam: Positive: Clear to auscultation, Normal air movement Heart Exam: Positive: Normal S1, Normal S2, Rate Normal, Regular Rhythm, Negative: Murmurs, Rubs Extremity Exam: Positive: Normal pulses, Negative: Clubbing, Cyanosis, Edema Skin Exam: Positive: Nl turgor and temperature, Negative: Breakdown, Rash Neuro Exam: Positive: Normal Speech (speech is clear. 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 (2) Atrial fibrillation Status: Chronic Problem Text: * Coumadin * Rate controlled. * Reviewed EKGs with Dr Haynes. One from 11/24 afternoon and 11/25 4AM PM. Both SR. * CIP/Trop neg. * Pt denies CP/SOB/Palpitations. (3) Ventricular tachycardia Status: Chronic Problem Text: * AICD * Outpt F/U planned. (4) Chronic kidney disease (CKD), stage III (moderate) Status: Chronic Problem Text: * Scr trend decreased slightly. * Continue to hold ACEI * Cont HCTZ. * Monitor labs (5) Anxiety Status: Chronic Problem Text: * Buspar as per attending (6) Mechanical heart valve present Status: Chronic Problem Text: * Goal INR 2.5-3.5. * INR 4.01. * Pt did receive extra doses 10/27 and 11/25 * (Usual dose 2.5mg daily) * Will hold Coumadin today. * Continue with daily INR and dose accordingly tomorrow. (7) Anemia Status: Chronic Problem Text: * 8.8-9.7 * Consent for transfusion was placed on the chart. * B12/folate WNL * Fe34/Ferritin 351 * Stool OB pending. (8) HTN (hypertension) Status: Chronic Problem Text: * Hold ACEI related to renal function. * Cont Norvasc/HCTZ. * Monitor labs. * Monitor BP. Plan/VTE VTE Prophylaxis Ordered?: Yes VS, I&O, 24H, Fishbone Vital Signs/I&O Vital Signs Date Time Temp Pulse Resp B/P Pulse Ox O2 Delivery O2 Flow Rate FiO2 11/27/16 09:22 77 143/61 11/27/16 09:00 Nasal Cannula 2.5 11/27/16 08:06 98.1 24 99 I&O- Last 24 Hours up to 6 AM 11/27/16 05:59 Intake Total 900 ml Balance 900 ml Laboratory Data 24H LABS Laboratory Tests 2 11/27/16 07:01: Blood Urea Nitrogen 24H, Creatinine 1.45H, Sodium Level 140, Potassium Level 4.4 , Chloride Level 104, Carbon Dioxide Level 29, Calcium Level 8.6L, Aspartate Amino Transf (AST/SGOT) 35, Alanine Aminotransferase (ALT/SGPT) 16, Alkaline Phosphatase 160H, Total Bilirubin 0.6, Total Protein 6.9, Albumin 3.5, Albumin/ Globulin Ratio 1.03, Anion Gap 7L, Glomerular Filtration Rate 36.9, Prothromb Time International Ratio 4.01, Prothrombin Time 39.0H CBC/BMP Laboratory Tests 11/27/16 07:01 Calcium Level 8.6 L, Aspartate Amino Transf (AST/SGOT) 35, Alanine Aminotransferase (ALT/SGPT) 16, Alkaline Phosphatase 160 H, Total Bilirubin 0.6 , Total Protein 6.9, Albumin 3.5, Red Blood Count 3.02 L, Mean Corpuscular Volume 88.8, Mean Corpuscular Hemoglobin 28.7, Mean Corpuscular Hemoglobin Concent 32.3, Red Cell Distribution Width 14.5 Microbiology Microbiology 11/24/16 Urine Culture - Final, Complete Mary Ann Arteaga Nov 27, 2016 12:18
[2016-11-27 14:00] VITALS: BP 127/60
--- NOTE | 2016-11-27 14:26 | IPNPDOC ---
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 Patient without complaints and happy with improvement in the ecchymoses she came here with. However, patient hoping to stay until she achieves a level of independence to modified independence that will allow her to return home as she is not able to depend on her significant other to help her due to his medical problems. Patient 's family conference was held today with the patient her daughter son-in-law and [id number]. ALLERGIES: See Below MEDICATIONS ON ADMISSION: Reviewed, see below. OBJECTIVE: VITAL SIGNS: Please see below. PHYSICAL EXAMINATION: GENERAL: Thin above-average height elderly white female who is alert and oriented to Person, Place, General time and situation. She is in no acute distress but still has some impulsive behaviors as well as difficulty following directions at time and is having lots of time generating speech to tell us what she thinks her wants. Patient with good to full strength on the right upper and lower extremity full on the left. Her AICD incision has healed across and she continues to show an improvement in clearing of the ecchymoses on the upper extremities as well as around the chin. She is in general pleasant and cooperative but does become anxious at times and also shows impulsivity in her motor activities. This was expresses a concern in team rounds by the team and patient's family. HEENT: Normocephalic atraumatic with just a slight amount of ecchymoses on the chin. CARDIOVASCULAR: A regular rate with very faint holosystolic murmur and clinics at the start and conclusion of systole. Good 2/4 pulses in bilateral upper extremities at the wrist. LUNGS: Clear in all rodríguez on auscultation. ABDOMEN: Flat nontender with normal bowel sounds in all quadrants. NEUROLOGICAL: As noted above SKIN: Skin as noted above LABORATORY DATA: Reviewed. Please see below. MICROBIOLOGY: Please see below. DVT prophylaxis ordered?: INR elevated will need adjustments during the weekend tonight Coumadin dose be held ASSESSMENT AND PLAN: 1. Rehabilitation of left CVA with hemiparesis and fluent a facial: We'll have team reassessment on Wednesday but at this time plan to discharge with family or to [facility] on Wednesday if family is unable provide the supervision patient needs. 2. Valvular disease: Hospitalist service will assess INR and adjust Coumadin appropriately but for now tonight's dose will be held due to INR 4.01. 3. Atrial fibrillation and ventricular tachycardia: These have remained relatively stable and well controlled. TIME SPENT: Including patient family conference chart review and exam greater than 45 minutes. Allergies Coded Allergies: No Known Allergies (Unverified , 11/23/16) Vital Signs Vital Signs Date Time Temp Pulse Resp B/P Pulse Ox O2 Delivery O2 Flow Rate FiO2 11/27/16 09:22 77 143/61 11/27/16 09:00 Nasal Cannula 2.5 11/27/16 08:06 98.1 24 99 Laboratory Data CBC/BMP Laboratory Tests 11/27/16 07:01 Calcium Level 8.6 L, Aspartate Amino Transf (AST/SGOT) 35, Alanine Aminotransferase (ALT/SGPT) 16, Alkaline Phosphatase 160 H, Total Bilirubin 0.6 , Total Protein 6.9, Albumin 3.5, Red Blood Count 3.02 L, Mean Corpuscular Volume 88.8, Mean Corpuscular Hemoglobin 28.7, Mean Corpuscular Hemoglobin Concent 32.3, Red Cell Distribution Width 14.5 Labs 24H Laboratory Tests 2 11/27/16 07:01: Blood Urea Nitrogen 24H, Creatinine 1.45H, Sodium Level 140, Potassium Level 4.4 , Chloride Level 104, Carbon Dioxide Level 29, Calcium Level 8.6L, Aspartate Amino Transf (AST/SGOT) 35, Alanine Aminotransferase (ALT/SGPT) 16, Alkaline Phosphatase 160H, Total Bilirubin 0.6, Total Protein 6.9, Albumin 3.5, Albumin/ Globulin Ratio 1.03, Anion Gap 7L, Glomerular Filtration Rate 36.9, Prothromb Time International Ratio 4.01, Prothrombin Time 39.0H Microbiology Microbiology 11/24/16 Urine Culture - Final, Complete Current Medications Current Medications Current Medications Acetaminophen (Tylenol Tab) 650 mg Q4HP PRN PO MILD PAIN (PS 1-4) Last administered on 11/26/16 21:05; Start 11/23/16 at 16:30; Stop 12/23/16 at 16:29 Amlodipine Besylate (Norvasc) 10 mg DAILY PO Last administered on 11/27/16 09: 21; Start 11/24/16 at 09:00; Stop 12/24/16 at 08:59 Aspirin (Aspirin Chewable) 81 mg DAILY PO Last administered on 11/27/16 09:22 ; Start 11/24/16 at 09:00; Stop 12/24/16 at 08:59 Atorvastatin Calcium (Lipitor) 40 mg QHS PO Last administered on 11/26/16 21: 06; Start 11/23/16 at 21:00; Stop 12/23/16 at 20:59 Budesonide/ Formoterol Fumarate (Symbicort 160/ 4.5mcg) 2 puff BID INH Last administered on 11/27/16 07:49; Start 11/23/16 at 21:00; Stop 12/23/16 at 20:59 Buspirone HCl (Buspar) 5 mg BID PO Last administered on 11/26/16 21:06; Start 11/24/16 at 09:00; Stop 11/27/16 at 08:59; Status DC Buspirone HCl (Buspar) 7.5 mg BID PO Last administered on 11/27/16 09:21; Start 11/27/16 at 09:00; Stop 11/30/16 at 08:59 Buspirone HCl (Buspar) 10 mg BID PO ; Start 11/30/16 at 09:00; Stop 12/27/16 at 08:59 Docusate Sodium (Colace) 100 mg DAILY PO Last administered on 11/26/16 09:55; Start 11/24/16 at 09:00; Stop 12/24/16 at 08:59 Hydrochlorothiazide (Hydrodiuril) 25 mg DAILY PO Last administered on 09:22; Start 11/24/16 at 09:00; Stop 12/24/16 at 08:59 Levothyroxine Sodium (Synthroid) 0.05 mg DAILY@06 PO Last administered on 06:33; Start 11/24/16 at 06:00; Stop 12/24/16 at 05:59 Lisinopril (Prinivil) 5 mg DAILY PO Last administered on 11/26/16 09:56; Start 11/24/16 at 09:00; Stop 11/26/16 at 13:46; Status DC Metoprolol Tartrate (Lopressor) 25 mg BID PO Last administered on 11/27/16 09: 22; Start 11/23/16 at 21:00; Stop 12/23/16 at 20:59 Multivitamins (Theragram-M) 1 tab DAILY PO Last administered on 11/27/16 09:22 ; Start 11/24/16 at 09:00; Stop 12/24/16 at 08:59 Ondansetron HCl (Zofran) 4 mg Q4HP PRN PO NAUSEA OR VOMITING Last administered on 11/25/16 05:00; Start 11/25/16 at 05:00; Stop 12/25/16 at 04:59 Polyethylene Glycol (Miralax) 1 pkt DAILY PO Last administered on 11/26/16 09: 55; Start 11/24/16 at 09:00; Stop 12/24/16 at 08:59 Warfarin Sodium (Coumadin) 2.5 mg DAILY@17 PO Last administered on 11/26/16 17 :36; Start 11/25/16 at 17:00; Stop 11/27/16 at 08:15; Status DC HARJINDER DUNN MD Nov 27, 2016 14:26
[2016-11-27 20:00] VITALS: BP 123/57
[2016-11-27] MEDS: ATORVASTATIN 20 MG TAB PO SCH (20:13)
[2016-11-28 06:00] VITALS: BP 136/62
[2016-11-28] MEDS: LEVOTHYROXINE 0.05 MG TAB (50 MCG) PO SCH (06:29)
[2016-11-28] MEDS: SYMBICORT 160/4.5MCG INHALER 6GM INH SCH ×2 (07:06→19:50)
[2016-11-28 07:07] LABS: INR 4.02; MEAN CORPUSCULAR HEMOGLOBIN 28.6 pg (27.0-33.0); MEAN CORPUSCULAR HGB CONC 32.2 g/dl (32.0-36.5); MEAN CORPUSCULAR VOLUME 88.6 fl (80.0-96.0); RED CELL DISTRIBUTION WIDTH 14.4 % (11.5-14.5); WHITE BLOOD COUNT 6.8 K/mm3 (4.0-10.0)
[2016-11-28 07:31] LABS: CALCIUM LEVEL 9.1 MG/DL (8.8-10.2); CREATININE FOR GFR 1.31 MG/DL (0.55-1.02); GLOMERULAR FILTRATION RATE 41.5 (>32); POTASSIUM SERUM 4.6 MEQ/L (3.5-5.1)
[2016-11-28] MEDS: MULTIVITAMINS/MINERALS THERAP 1 TAB PO SCH (08:40)
[2016-11-28] MEDS: ASPIRIN 81 MG CHEW TABLET PO SCH (08:40)
[2016-11-28] MEDS: METOPROLOL TART 25 MG TABLET PO SCH ×2 (08:40→20:25)
[2016-11-28] MEDS: MIRALAX *UNIT DOSE* 17GM PACKET PO SCH (08:41)
[2016-11-28] MEDS: hydroCHLOROthiazide 25 MG TAB PO SCH (08:41)
[2016-11-28] MEDS: amLODIPine 10 MG TAB PO SCH (08:41)
[2016-11-28] MEDS: busPIRone 5 MG TAB PO SCH ×2 (08:41→20:25)
[2016-11-28] MEDS: DOCUSATE SODIUM 100 MG CAP PO SCH (08:41)
[2016-11-28 14:00] VITALS: BP 114/55
[2016-11-28 20:00] VITALS: BP 117/58
[2016-11-28] MEDS: ATORVASTATIN 20 MG TAB PO SCH (20:25)
[2016-11-28] MEDS: ACETAMINOPHEN TAB 650MG DOSE (2X325MG) PO PRN (20:27)
[2016-11-29 06:00] VITALS: BP 125/55
[2016-11-29] MEDS: LEVOTHYROXINE 0.05 MG TAB (50 MCG) PO SCH (06:17)
[2016-11-29 06:53] LABS: INR 3.45
[2016-11-29 06:54] LABS: MEAN CORPUSCULAR HEMOGLOBIN 28.5 pg (27.0-33.0); MEAN CORPUSCULAR HGB CONC 31.8 g/dl (32.0-36.5); MEAN CORPUSCULAR VOLUME 89.7 fl (80.0-96.0); RED CELL DISTRIBUTION WIDTH 14.7 % (11.5-14.5); WHITE BLOOD COUNT 6.3 K/mm3 (4.0-10.0)
[2016-11-29 07:02] LABS: CREATININE FOR GFR 1.53 MG/DL (0.55-1.02); GLOMERULAR FILTRATION RATE 34.7 (>32); POTASSIUM SERUM 4.3 MEQ/L (3.5-5.1)
[2016-11-29] MEDS: SYMBICORT 160/4.5MCG INHALER 6GM INH SCH ×2 (07:08→19:47)
[2016-11-29] MEDS: ASPIRIN 81 MG CHEW TABLET PO SCH (08:11)
[2016-11-29] MEDS: MULTIVITAMINS/MINERALS THERAP 1 TAB PO SCH (08:11)
[2016-11-29] MEDS: busPIRone 5 MG TAB PO SCH ×2 (08:11→20:45)
[2016-11-29] MEDS: amLODIPine 10 MG TAB PO SCH (08:11)
[2016-11-29] MEDS: METOPROLOL TART 25 MG TABLET PO SCH ×2 (08:12→20:39)
[2016-11-29] MEDS: DOCUSATE SODIUM 100 MG CAP PO SCH (08:12)
[2016-11-29] MEDS: MIRALAX *UNIT DOSE* 17GM PACKET PO SCH (08:12)
[2016-11-29 14:00] VITALS: BP 122/56
[2016-11-29 20:00] VITALS: BP 144/67
[2016-11-29] MEDS: ACETAMINOPHEN TAB 650MG DOSE (2X325MG) PO PRN (20:44)
[2016-11-29] MEDS: ATORVASTATIN 20 MG TAB PO SCH (20:45)
[2016-11-30 06:00] VITALS: BP 140/64
[2016-11-30] MEDS: LEVOTHYROXINE 0.05 MG TAB (50 MCG) PO SCH (06:11)
[2016-11-30 07:28] LABS: INR 2.58
[2016-11-30 07:30] LABS: MEAN CORPUSCULAR HEMOGLOBIN 28.4 pg (27.0-33.0); MEAN CORPUSCULAR HGB CONC 31.8 g/dl (32.0-36.5); MEAN CORPUSCULAR VOLUME 89.3 fl (80.0-96.0); RED CELL DISTRIBUTION WIDTH 14.6 % (11.5-14.5)
[2016-11-30] MEDS: SYMBICORT 160/4.5MCG INHALER 6GM INH SCH ×2 (07:49→19:29)
[2016-11-30 07:55] LABS: CREATININE FOR GFR 1.76 MG/DL (0.55-1.02); GLOMERULAR FILTRATION RATE 29.5 (>32); POTASSIUM SERUM 4.6 MEQ/L (3.5-5.1)
[2016-11-30] MEDS: MULTIVITAMINS/MINERALS THERAP 1 TAB PO SCH (09:00)
[2016-11-30] MEDS: MIRALAX *UNIT DOSE* 17GM PACKET PO SCH (09:01)
[2016-11-30] MEDS: METOPROLOL TART 25 MG TABLET PO SCH ×3 (09:02→21:23)
[2016-11-30] MEDS: DOCUSATE SODIUM 100 MG CAP PO SCH (09:02)
[2016-11-30] MEDS: busPIRone 10 MG TAB PO SCH ×2 (09:03→21:23)
[2016-11-30] MEDS: amLODIPine 10 MG TAB PO SCH (09:03)
[2016-11-30] MEDS: ASPIRIN 81 MG CHEW TABLET PO SCH (09:03)
--- NOTE | 2016-11-30 12:43 | IPNPDOC ---
Subjective Date Seen The patient was seen on 11/30/16. Subjective Chief Complaint/HPI The patient is a 81-year-old female admitted with a reason for visit of Left Mca Stroke. Events since last encounter Pt states "I feel fine" Some SOB when she first woke up this AM, but when she got OOB she felt better. No CP, No palpitations. Gastrointestinal: Denies: Abdominal Pain, Constipation, Diarrhea, Nausea, Vomiting Genitourinary: Denies: Dysuria, Frequency, Incontinence, Retention Objective Physical Examination General Exam: Positive: Alert Eye Exam: Positive: PERRLA ENT Exam: Positive: Atraumatic Chest Exam: Positive: Clear to auscultation, Normal air movement Heart Exam: Positive: Irregular Rhythm, Negative: Murmurs, Rubs Extremity Exam: Positive: Edema (1-2mm edema ankles. ), Normal pulses, Negative: Clubbing, Cyanosis Skin Exam: Positive: Nl turgor and temperature, Negative: Breakdown, Rash Neuro Exam: Positive: Normal Speech (speech is clear. 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 (2) Atrial fibrillation Status: Chronic Problem Text: * Coumadin * Rate controlled. * EKG 11/24 afternoon and 11/25 4AM PM. Both SR. * CIP/Trop neg. * Pt denies CP/SOB/Palpitations. * EKG this AM Afib, rate 110. * Discussed with Dr Haynes, will increase Lopressor to 25mg Q8 with hold parameters. * INR therapeutic. (3) Ventricular tachycardia Status: Chronic Problem Text: * AICD * Outpt F/U planned. (4) Chronic kidney disease (CKD), stage III (moderate) Status: Chronic Problem Text: * Scr trend increased. * Continue to hold ACEI * HCTZ d/cd. * Monitor labs * Plan for outpt f/u with Nephrology. (5) Anxiety Status: Chronic Problem Text: * Buspar as per attending (6) Mechanical heart valve present Status: Chronic Problem Text: * Goal INR 2.5-3.5. * INR 2.58. * Pt did receive extra doses 10/27 and 11/25 * (Usual dose 2.5mg daily) * Resume coumadin 2.5mg daily. * Continue with daily INR and dose accordingly tomorrow. (7) Anemia Status: Chronic Problem Text: * 8.8-9.7 * Consent for transfusion was placed on the chart. * B12/folate WNL * Fe34/Ferritin 351 * Stool OB pending. (8) HTN (hypertension) Status: Chronic Problem Text: * Hold ACEI/HCTZ related to renal function. * Cont Norvasc. * Labetalol Q8 * Dose of po Lasix given today. * Monitor labs. * Monitor BP. Plan/VTE VTE Prophylaxis Ordered?: Yes VS, I&O, 24H, Fishbone Vital Signs/I&O Vital Signs Date Time Temp Pulse Resp B/P Pulse Ox O2 Delivery O2 Flow Rate FiO2 11/30/16 09:02 80 140/78 11/30/16 09:00 Nasal Cannula 2.5 11/30/16 06:00 99.0 20 98 I&O- Last 24 Hours up to 6 AM 11/30/16 06:00 Intake Total 780 ml Balance 780 ml Laboratory Data 24H LABS Laboratory Tests 2 11/30/16 07:07: Prothromb Time International Ratio 2.58, Prothrombin Time 27.7H 11/30/16 07:08: Anion Gap 8, Blood Urea Nitrogen 29H, Creatinine 1.76H, Sodium Level 140, Potassium Level 4.6, Chloride Level 105, Carbon Dioxide Level 27, Calcium Level 9.0, Glomerular Filtration Rate 29.5L CBC/BMP Laboratory Tests 11/30/16 07:08 Calcium Level 9.0, Red Blood Count 3.16 L, Mean Corpuscular Volume 89.3, Mean Corpuscular Hemoglobin 28.4, Mean Corpuscular Hemoglobin Concent 31.8 L, Red Cell Distribution Width 14.6 H Microbiology Microbiology 11/24/16 Urine Culture - Final, Complete Mary Ann Arteaga Nov 30, 2016 12:43
[2016-11-30] MEDS ORDERED: FUROSEMIDE 40 MG TAB PO ONE (13:00)
--- NOTE | 2016-11-30 13:45 | ECGEPIP ---
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 Electronically Signed On 11-30-2016 13:45:21 EDT by Carlos A Graf
[2016-11-30 14:00] VITALS: BP 157/70
--- NOTE | 2016-11-30 15:00 | IPNPDOC ---
Trap Operator Progress Note DATE OF SERVICE: 11/30/16 DATE OF ADMISSION: Nov 23, 2016 at 14:00 INPATIENT REHABILITATION ADMISSION DAY: #7 SUBJECTIVE: Patient is a 81-year-old white female with left CVA, fluent aphasia and mild right hemiparesis. Patient reports being in no acute distress with no pain and feeling better in general. ALLERGIES: See Below MEDICATIONS: See below. OBJECTIVE: VITAL SIGNS: Please see below. PHYSICAL EXAMINATION: GENERAL: Tall thin elderly white female who is alert and oriented to person place and situation with a marked drop in the aphasia since Wednesday. HEENT: Normocephalic/atraumatic with conjugate vision, clear speech and no facial drooping. CARDIOVASCULAR: Regular rate and rhythm with S1 and S2 still with valvular clicks. AICD site without any signs of irritation or inflammation LUNGS: All rodríguez clear to auscultation. ABDOMEN: Flat nontender with normal bowel sounds in all quadrants. NEUROLOGICAL: As noted above improved awareness and better use of language fewer neoglisms and better understanding of speech with more appropriate and complex answers. SKIN: Good color very little ecchymosis left anywhere. LABORATORY DATA: Reviewed. Please see below. MICROBIOLOGY: Please see below. DVT prophylaxis ordered?: INR 2.58 patient of Coumadin the last 2 nights I will discuss restart with hospitalist ASSESSMENT AND PLAN: 1. Rehabilitation of left CVA: Patient making notable progress in the last 3 days with communication and continue progress on mobility. Look towards discharge tomorrow with home care, PT and OT. 2. ASCVD: Patient had a bout of A. fib in the last 24 hours now regular pulse and heart sound. Need to continue Coumadin therapy. 3. Chronic kidney disease: Patient currently showing some trend up and BUN and creatinine. Hospitalist is aware. But does appear our patient has not lost 7 kg in the last 3 days. TIME SPENT: Chart review, patient exam, team rounds and documentation required greater than 35 minutes. Allergies Coded Allergies: No Known Allergies (Unverified , 11/23/16) Vital Signs Vital Signs Date Time Temp Pulse Resp B/P Pulse Ox O2 Delivery O2 Flow Rate FiO2 11/30/16 09:02 80 140/78 11/30/16 09:00 Nasal Cannula 2.5 11/30/16 06:00 99.0 20 98 Laboratory Data CBC/BMP Laboratory Tests 11/30/16 07:08 Calcium Level 9.0, Red Blood Count 3.16 L, Mean Corpuscular Volume 89.3, Mean Corpuscular Hemoglobin 28.4, Mean Corpuscular Hemoglobin Concent 31.8 L, Red Cell Distribution Width 14.6 H Labs 24H Laboratory Tests 2 11/30/16 07:07: Prothromb Time International Ratio 2.58, Prothrombin Time 27.7H 11/30/16 07:08: Anion Gap 8, Blood Urea Nitrogen 29H, Creatinine 1.76H, Sodium Level 140, Potassium Level 4.6, Chloride Level 105, Carbon Dioxide Level 27, Calcium Level 9.0, Glomerular Filtration Rate 29.5L Microbiology Microbiology 11/24/16 Urine Culture - Final, Complete Current Medications Current Medications Current Medications Acetaminophen (Tylenol Tab) 650 mg Q4HP PRN PO MILD PAIN (PS 1-4) Last administered on 11/29/16 20:44; Start 11/23/16 at 16:30; Stop 12/23/16 at 16:29 Amlodipine Besylate (Norvasc) 10 mg DAILY PO Last administered on 11/30/16 09: 03; Start 11/24/16 at 09:00; Stop 12/24/16 at 08:59 Aspirin (Aspirin Chewable) 81 mg DAILY PO Last administered on 11/30/16 09:03; Start 11/24/16 at 09:00; Stop 12/24/16 at 08:59 Atorvastatin Calcium (Lipitor) 40 mg QHS PO Last administered on 11/29/16 20:45 ; Start 11/23/16 at 21:00; Stop 12/23/16 at 20:59 Budesonide/ Formoterol Fumarate (Symbicort 160/ 4.5mcg) 2 puff BID INH Last administered on 11/30/16 07:49; Start 11/23/16 at 21:00; Stop 12/23/16 at 20:59 Buspirone HCl (Buspar) 5 mg BID PO Last administered on 11/26/16 21:06; Start 11/24/16 at 09:00; Stop 11/27/16 at 08:59; Status DC Buspirone HCl (Buspar) 7.5 mg BID PO Last administered on 11/29/16 20:45; Start 11/27/16 at 09:00; Stop 11/30/16 at 08:59; Status DC Buspirone HCl (Buspar) 10 mg BID PO Last administered on 11/30/16 09:03; Start 11/30/16 at 09:00; Stop 12/27/16 at 08:59 Docusate Sodium (Colace) 100 mg DAILY PO Last administered on 11/30/16 09:02; Start 11/24/16 at 09:00; Stop 12/24/16 at 08:59 Hydrochlorothiazide (Hydrodiuril) 25 mg DAILY PO Last administered on 11/28/16 08:41; Start 11/24/16 at 09:00; Stop 11/29/16 at 07:50; Status DC Levothyroxine Sodium (Synthroid) 0.05 mg DAILY@06 PO Last administered on 06:11; Start 11/24/16 at 06:00; Stop 12/24/16 at 05:59 Lisinopril (Prinivil) 5 mg DAILY PO Last administered on 11/26/16 09:56; Start 11/24/16 at 09:00; Stop 11/26/16 at 13:46; Status DC Metoprolol Tartrate (Lopressor) 25 mg BID PO Last administered on 11/30/16 09: 02; Start 11/23/16 at 21:00; Stop 12/23/16 at 20:59 Multivitamins (Theragram-M) 1 tab DAILY PO Last administered on 11/30/16 09:00 ; Start 11/24/16 at 09:00; Stop 12/24/16 at 08:59 Ondansetron HCl (Zofran) 4 mg Q4HP PRN PO NAUSEA OR VOMITING Last administered on 11/25/16 05:00; Start 11/25/16 at 05:00; Stop 12/25/16 at 04:59 Polyethylene Glycol (Miralax) 1 pkt DAILY PO Last administered on 11/30/16 09: 01; Start 11/24/16 at 09:00; Stop 12/24/16 at 08:59 Warfarin Sodium (Coumadin) 2.5 mg DAILY@17 PO Last administered on 11/26/16 17 :36; Start 11/25/16 at 17:00; Stop 11/27/16 at 08:15; Status DC HARJINDER DUNN MD Nov 30, 2016 11:27
[2016-11-30] MEDS ORDERED: WARFARIN SOD 2.5 MG TAB PO SCH (17:00)
[2016-11-30 20:00] VITALS: BP 130/80
[2016-11-30] MEDS: ATORVASTATIN 20 MG TAB PO SCH (21:23)
[2016-12-01] MEDS: METOPROLOL TART 25 MG TABLET PO SCH (05:47)
[2016-12-01] MEDS: LEVOTHYROXINE 0.05 MG TAB (50 MCG) PO SCH (05:47)
[2016-12-01 06:00] VITALS: BP 147/67
[2016-12-01 07:08] LABS: MEAN CORPUSCULAR HEMOGLOBIN 28.8 pg (27.0-33.0); MEAN CORPUSCULAR HGB CONC 32.5 g/dl (32.0-36.5); MEAN CORPUSCULAR VOLUME 88.7 fl (80.0-96.0); RED CELL DISTRIBUTION WIDTH 14.7 % (11.5-14.5); WHITE BLOOD COUNT 5.8 K/mm3 (4.0-10.0)
[2016-12-01 07:11] LABS: INR 2.52
[2016-12-01] MEDS: SYMBICORT 160/4.5MCG INHALER 6GM INH SCH (07:32)
[2016-12-01 07:34] LABS: CALCIUM LEVEL 8.9 MG/DL (8.8-10.2); CREATININE FOR GFR 1.48 MG/DL (0.55-1.02); POTASSIUM SERUM 4.4 MEQ/L (3.5-5.1)
[2016-12-01] MEDS: DOCUSATE SODIUM 100 MG CAP PO SCH (09:00)
[2016-12-01] MEDS: MIRALAX *UNIT DOSE* 17GM PACKET PO SCH (09:00)
[2016-12-01] MEDS: MULTIVITAMINS/MINERALS THERAP 1 TAB PO SCH (09:46)
[2016-12-01 09:47] VITALS: BP 142/54
[2016-12-01] MEDS: amLODIPine 10 MG TAB PO SCH (09:47)
[2016-12-01] MEDS: ASPIRIN 81 MG CHEW TABLET PO SCH (09:47)
[2016-12-01] MEDS: busPIRone 10 MG TAB PO SCH (09:48)
[2016-12-01] MEDS ORDERED: LEVO50TA5 PO ×2 (10:11→10:44)
[2016-12-01] MEDS ORDERED: METO25TAB PO ×2 (10:11→10:44)
[2016-12-01] MEDS ORDERED: COUM2.5T11 PO ×3 (10:11→10:44)
[2016-12-01] MEDS ORDERED: MAPA325T2 PO ×2 (10:24→10:44)
[2016-12-01] MEDS ORDERED: AMLO10TA2 PO ×2 (10:25→10:44)
[2016-12-01] MEDS ORDERED: ASPI81TA PO ×2 (10:25→10:44)
[2016-12-01] MEDS ORDERED: BUSP10TA PO ×2 (10:25→10:44)
[2016-12-01] MEDS ORDERED: COLA100C PO ×2 (10:25→10:44)
[2016-12-01] MEDS ORDERED: ATOR1TAB21 PO ×3 (10:25→11:43)
[2016-12-01] MEDS ORDERED: SYMB16INH INH ×2 (10:25→10:44)
--- NOTE | 2016-12-01 15:43 | PMRDS ---
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 Briefly, after that, patient went from her atrial fibrillation to ventricular tachycardia and had cardiopulmonary arrest and was resuscitated within five minutes and then, several hours later, had the same thing happen, where her atrial fibrillation transitioned into ventricular tachycardia and she arrested. Patient was again resuscitated less than five minutes and did require cardioversion for this second event. Her electrocardiogram (EKG) showed polymorphic ventricular tachycardia and echocardiogram showed diminished ejection fraction of 48% with global hypokinesia and patient then had an automatic implantable cardioverter defibrillator (AICD) placed on 11/19/2016. She was noted to have right-sided weakness along with a Wernicke-type fluid aphasia and was started in speech therapy, and was on Coumadin management to prevent thromboembolic events. On 11/23/2016, patient was taken transfer to [facility] acute rehabilitation unit for rehabilitation of the left cerebrovascular accident and its sequelae. Patient was assessed by the rehabilitation team, including rehabilitation nursing, physical, occupational and speech therapy, as well as physiatry. Patient was notable for Wernicke-type aphasia and had initial problems with communications due to confusion on the receptive component as well as neologisms and other word substitutions on expressive speech. Team evaluations have been held on Wednesday11/23/2016, 11/26/2016, and Wednesday11/30/2016, and patient has been making progress, particularly, has reached modified independence to supervision level and most of her physical and occupational therapy areas, and has just reached level where she is 80% accurate on receptive language and markedly improved her functional expressive language. Patient-family conference has been held and discharge planning occurred and patient is felt ready to go home today with home care, including [facility], occupational and speech therapies. During the course of her admission, she has had three electrocardiograms. Her most recent one, however, shows the transition from normal sinus rhythm back into atrial fibrillation with rapid ventricular response and marked right axis deviation with ST deviation and moderate T-wave abnormality on 11/30/2016. Patient has been increased, however, on metoprolol 25 mg 2-3 times a day and this has resulted in her transitioning back into normal sinus rhythm with a normal heart rate. OTHER PERTINENT DIAGNOSTICS: Laboratories show patient with moderate anemia with hemoglobin of 8.5 and hematocrit of 26.2, with elevated RDW of 14.7. Her current INR for this morning 2.52 on 2.5 mg of Coumadin per day. Chronic kidney disease showing normal electrolytes, but BUN 26 and creatinine 1.48 this morning, which has improved over the last couple of days. DISCHARGE DIAGNOSES: 1. 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 2. Ventricular fibulation with history of secondary ventricular tachycardia, automatic implantable cardioverter defibrillator (AICD) implantation on 11/19/2016. 3. Status post aortic and mitral valve replacement. 4. Chronic anxiety/depression. 5. Hypothyroidism. 6. Chronic obstructive pulmonary disease (COPD). 7. Hypertension. 8. Hyperlipidemia. 9. Degenerative joint disease (DJD). 10. Anemia. DISCHARGE MEDICATIONS: - acetaminophen 325 mg two tablets every 4 hours as needed mild pain or fever, not to exceed 3 grams per day and to take two tablets of 150 mg every 4 hours as needed - amlodipine 10 mg by mouth daily for hypertension - aspirin 81 mg by mouth daily for platelet management - atorvastatin 40 mg by mouth at bedtime taken as two 20 mg tablets at bedtime by mouth - Symbicort 160/3.5 two puffs inhaled twice a day - BuSpar 10 mg by mouth twice a day for anxiety - Colace 100 mg daily for bowel management - levothyroxine 50 mcg by mouth daily for hypothyroidism - metoprolol tartrate 25 mg by mouth every 8 hours - Coumadin 2.5 mg daily Patient to schedule to be seen by primary care, Dr. Hiren Aldana at [address] [place] [address], [id number]. Patient to have home care with [facility] and they are to draw INR 12/03/[address] Aldana with it for further adjustment and management. Patient is recommended to schedule an appointment with him within the next week for follow up on her general health, as well as the Coumadin management. COMPLICATIONS: No complications during this admission. DISCHARGE PLAN: As noted above, with medications as well as home care nursing and patient to work with family for support and is to receive some help from her significant other at their home. cc: Dr. Hiren Aldana, [facility], [address] [place] [address] [facility]
== END 2016-12-01 13:35 | disposition home health service (06) | DRG 56 ==
LOC: M PM&R 14:00
PROVIDERS: ADMIT Physical Medicine & Rehabilitation; ATTEND Physical Medicine & Rehabilitation
DX: I69.351 Hemiplegia and hemiparesis following cerebral infarction affecting right dominant side (principal); I49.01 Ventricular fibrillation; I47.2 Ventricular tachycardia; I69.320 Aphasia following cerebral infarction; I48.91 Unspecified atrial fibrillation; N18.3 Chronic kidney disease, stage 3 (moderate); E03.9 Hypothyroidism, unspecified; J44.9 Chronic obstructive pulmonary disease, unspecified; E78.5 Hyperlipidemia, unspecified; I65.21 Occlusion and stenosis of right carotid artery; F41.9 Anxiety disorder, unspecified; M19.90 Unspecified osteoarthritis, unspecified site; D64.9 Anemia, unspecified; I12.9 Hypertensive chronic kidney disease with stage 1 through stage 4 chronic kidney disease, or unspecified chronic kidney disease; Z79.82 Long term (current) use of aspirin; Z79.01 Long term (current) use of anticoagulants; Z95.2 Presence of prosthetic heart valve; Z86.74 Personal history of sudden cardiac arrest; Z95.810 Presence of automatic (implantable) cardiac defibrillator; Z79.899 Other long term (current) drug therapy